=== PATIENT | male | born 1985 | race Caucasian/White ===

== ENCOUNTER → 2017-05-05 | Outpatient (CLI) | payer MEDICAID, SELFPAY | LOC: M OUTALCOH 12:35 | PROVIDERS: ATTEND Psychiatry & Neurology Psychiatry | DX: F10.20 Alcohol dependence, uncomplicated (principal); F12.20 Cannabis dependence, uncomplicated ==

== ENCOUNTER 2017-05-17 09:00 | Outpatient (RCR) | payer MEDICAID, SELFPAY | END 2017-05-23 | LOC: M OUTALCOH 09:00 | PROVIDERS: ATTEND Psychiatry & Neurology Psychiatry | DX: F10.20 Alcohol dependence, uncomplicated (principal); F12.20 Cannabis dependence, uncomplicated; F17.200 Nicotine dependence, unspecified, uncomplicated ==

== ENCOUNTER 2017-06-21 16:00 | Outpatient (RCR) | payer MEDICAID, SELFPAY | END 2017-06-23 | LOC: M OUTALCOH 16:00 | PROVIDERS: ATTEND Psychiatry & Neurology Psychiatry | DX: F10.20 Alcohol dependence, uncomplicated (principal); F12.20 Cannabis dependence, uncomplicated; F17.200 Nicotine dependence, unspecified, uncomplicated ==

== ENCOUNTER 2017-07-20 15:00 | Outpatient (RCR) | payer MEDICAID | END 2017-07-23 | LOC: M OUTALCOH 15:00 | PROVIDERS: ATTEND Psychiatry & Neurology Psychiatry | DX: F10.20 Alcohol dependence, uncomplicated (principal); F12.20 Cannabis dependence, uncomplicated; F17.200 Nicotine dependence, unspecified, uncomplicated ==

== ENCOUNTER 2017-09-21 08:45 | Outpatient (RCR) | payer MEDICAID, OTHER | END 2017-09-22 | LOC: M OUTALCOH 08:45 | PROVIDERS: ATTEND Psychiatry & Neurology Psychiatry | DX: F10.20 Alcohol dependence, uncomplicated (principal); F12.20 Cannabis dependence, uncomplicated; F17.200 Nicotine dependence, unspecified, uncomplicated ==

== ENCOUNTER 2017-09-23 10:22 | Outpatient (RCR) | payer MEDICAID | END 2017-10-23 | LOC: M OUTALCOH 09-26 08:45 | DX: F10.20 Alcohol dependence, uncomplicated (principal); F12.20 Cannabis dependence, uncomplicated; F17.200 Nicotine dependence, unspecified, uncomplicated ==

== ENCOUNTER 2017-11-02 14:59 | Outpatient (RCR) | payer MEDICAID | END 2017-11-23 | LOC: M OUTALCOH 14:59 | DX: Z13.9 Encounter for screening, unspecified (principal); F12.20 Cannabis dependence, uncomplicated; F10.20 Alcohol dependence, uncomplicated ==

== ENCOUNTER 2017-12-08 10:00 | Outpatient (RCR) | payer MEDICAID | END 2017-12-21 | LOC: M OUTALCOH 12-16 15:00 | DX: F10.20 Alcohol dependence, uncomplicated (principal); F12.20 Cannabis dependence, uncomplicated; F17.200 Nicotine dependence, unspecified, uncomplicated ==

== ENCOUNTER 2017-12-23 14:35 | Outpatient (RCR) | payer MEDICAID | END 2018-01-21 | LOC: M OUTALCOH 01-02 08:45 | DX: F10.20 Alcohol dependence, uncomplicated (principal); F12.20 Cannabis dependence, uncomplicated; F17.200 Nicotine dependence, unspecified, uncomplicated ==

== ENCOUNTER 2018-01-23 11:37 | Outpatient (RCR) | payer MEDICAID | END 2018-02-20 | LOC: M OUTALCOH 01-25 08:45 | DX: F10.20 Alcohol dependence, uncomplicated (principal); F12.20 Cannabis dependence, uncomplicated; F17.200 Nicotine dependence, unspecified, uncomplicated ==

== ENCOUNTER 2018-03-08 16:00 | Outpatient (RCR) | payer MEDICAID | END 2018-03-23 | LOC: M OUTALCOH 03-10 13:00 | DX: F10.20 Alcohol dependence, uncomplicated (principal); F12.20 Cannabis dependence, uncomplicated; F17.200 Nicotine dependence, unspecified, uncomplicated ==

== ENCOUNTER 2018-04-24 14:19 | Outpatient (RCR) | payer MEDICAID | END 2018-05-23 | LOC: M OUTALCOH 14:19 | DX: F10.20 Alcohol dependence, uncomplicated (principal); F12.20 Cannabis dependence, uncomplicated; F17.200 Nicotine dependence, unspecified, uncomplicated ==

== ENCOUNTER 2018-08-23 18:16 | Emergency (ER) | payer OTHER, MEDICAID | END 2018-08-23 19:50 | disposition home or self-care (01) | LOC: M ED 18:16 | DX: Z04.1 Encounter for examination and observation following transport accident (principal); S30.0XXA Contusion of lower back and pelvis, initial encounter; S80.11XA Contusion of right lower leg, initial encounter; V03.10XA Pedestrian on foot injured in collision with car, pick-up truck or van in traffic accident, initial encounter; Y92.410 Unspecified street and highway as the place of occurrence of the external cause; Y93.89 Activity, other specified | CPT/HCPCS: 72170 ==

== ENCOUNTER 2025-09-24 01:58 | Emergency (ER) | payer OTHER, SELFPAY ==
[2025-09-24 04:06] VITALS: BP 112/77; TEMP 97.2; O2SAT 98
== END 2025-09-24 04:05 | disposition home or self-care (01) ==
LOC: M ED 01:58
DX: F10.120 Alcohol abuse with intoxication, uncomplicated (principal); F17.210 Nicotine dependence, cigarettes, uncomplicated